=== PATIENT | male | born 1950 | race Caucasian/White ===

== ENCOUNTER 2016-12-26 09:22 | Emergency (ER) | payer OTHER ==
[~2016-12-26] VITALS: Ht 182.9 cm; Wt 106.0 kg
[2016-12-26 09:26] VITALS: BP 129/96; PULSE 70; RESP 16; TEMP 98.6; O2SAT 96
[2016-12-26] MEDS ORDERED: GABA600T PO (09:46)
[2016-12-26] MEDS ORDERED: B2100TAB PO (09:46)
[2016-12-26] MEDS ORDERED: PROZ40CA PO (09:46)
[2016-12-26] MEDS ORDERED: FINA1TAB16 PO (09:46)
[2016-12-26] MEDS ORDERED: PREV15CA15 PO (09:46)
[2016-12-26] MEDS ORDERED: NORT10CA PO (09:46)
[2016-12-26] MEDS ORDERED: ACETAMINOPHEN/HYDROcodone 325 MG/5 MG TAB PO ONE (10:15)
[2016-12-26] MEDS ORDERED: CEPHALEXIN MONOHYDRATE 500 MG CAP PO ONE (10:15)
[2016-12-26] MEDS ORDERED: TETANUS/DIPHTHERIA TOXOID ADULT 0.5 ML VIAL IM ONE (10:15)
[2016-12-26] MEDS ORDERED: ULTR50TA5 PO ×2 (10:16→10:26)
[2016-12-26] MEDS ORDERED: CEPH-460 PO ×2 (10:16→10:26)
--- NOTE | 2016-12-26 10:16 | PD ---
HPI . Left hand pain Chief Complaint: Skin Problem Time Seen by Provider: 10:04 Travel History International Travel<30 days: No Contact w/Intl Traveler<30days: No Traveled to known affect area: No History of Present Illness HPI Patient presents with pain and swelling of the left hand. He states that he initially injured his left lower forearm about a week ago. He scraped it on a toolbox. He then subsequently scraped it on some metal. However, he did not have any problems with it about 2 days ago when it started swelling and becoming painful. The symptoms have progressively increased over the course of last couple days. He denies any associated fevers or chills. He states that the pain is not exacerbated by movement of the fingers. He believes that his last tetanus shot was about 6-7 years ago. [id number]: Left wrist and hand QUALITY: Throbbing DURATION: 2 days TIMING: Progressively worsening CONTEXT: Associated with an antecedent abrasion on the left lower forearm MODIFYING FACTORS: Not exacerbated by finger movement ASSOCIATED SYMPTOMS: No associated fevers or chills PFSH Past Medical History Diminished Hearing: No Migraines: Yes Tetanus Vaccination: > 5 Years Influenza Vaccination: Yes Past Surgical History Other Surgery: Yes (RIGHT HAND SX) Social History Alcohol Use: Yes (RARE) Tobacco Use: No (QUIT 2011) Substance Use: No Allergies-Medications (Allergen,Severity, Reaction): Coded Allergies: No Known Allergies (Unverified , 12/26/16) Reported Meds & Prescriptions Reported Meds & Active Scripts Active Reported Prevacid (Lansoprazole) 15 Mg Capdr 15 Mg PO HS Nortriptyline (Nortriptyline HCl) 10 Mg Cap 10 Mg PO HS Finasteride (Finasteride (Alopecia)) 1 Mg Tab 5 Mg PO DAILY B2 (Riboflavin) 100 Mg Tab 3 Tab PO DAILY Prozac (Fluoxetine HCl) 40 Mg Cap 40 Mg PO DAILY Gabapentin 600 Mg Tab 600 Mg PO TID Review of Systems Except as stated in HPI: all other systems reviewed are Neg General / Constitutional: No: Fever, Chills Musculoskeletal: Positive: Edema (left wrist and hand left wrist and hand), Pain Skin: Positive Change in Pigmentation Physical Exam Narrative GENERAL: Awake and alert and in no acute distress. SKIN: Warm and dry. Some mild erythema and warmth on the dorsal aspect of the left wrist and hand. CARDIOVASCULAR: Regular rate and rhythm. RESPIRATORY: No accessory muscle use. MUSCULOSKELETAL: No obvious deformities. No edema. He is able to flex and extend the fingers without difficulty. NEUROLOGICAL: Awake and alert. No obvious cranial nerve deficits. Motor grossly within normal limits. Normal speech. PSYCHIATRIC: Appropriate mood and affect; insight and judgment normal. Data Data Last Documented VS Vital Signs Date Time Temp Pulse Resp B/P Pulse Ox O2 Delivery O2 Flow Rate FiO2 12/26/16 09:26 98.6 70 16 129/96 96 Orders Tetanus/Diphtheria Tox Adult (Tetanus/Di (12/26/16 10:15) Cephalexin (Keflex) (12/26/16 10:15) Acetamin-Hydrocod 325-5 Mg ([place] 5-325 (12/26/16 10:15) MDM Medical Decision Making Medical Screen Exam Complete: Yes Emergency Medical Condition: Yes Differential Diagnosis My differential diagnosis includes but is not limited to localized wound infection, cellulitis, abscess Narrative Course Patient presents with pain and swelling of the left hand after suffering an abrasion to left forearm. He has cellulitis on exam. No evidence of tenosynovitis. Diagnosis Primary Impression: Cellulitis and abscess of hand Patient Instructions: Cellulitis (DC), General Instructions Med/Other Pt SpecificInfo: Prescription(s) given Scripts Tramadol (Ultram)50 Mg Tab50 Mg PO Q4H PRN (PAIN) #12 TAB Ref 0 Prov:Mirna Andrade MD 12/26/16 Cephalexin (Keflex)500 Mg [id number] Mg PO Q8H #30 CAP Ref 0 Prov:Mirna Andrade MD 12/26/16 Disposition: 01 DISCHARGE HOME Condition: Stable Mirna Andrade MD Dec 26, 2016 10:16
== END 2016-12-26 10:34 | disposition home or self-care (01) ==
LOC: PHED 09:22
DX: L03.114 Cellulitis of left upper limb (principal); L02.512 Cutaneous abscess of left hand; S50.812A Abrasion of left forearm, initial encounter; W26.8XXA Contact with other sharp object(s), not elsewhere classified, initial encounter; Y93.9 Activity, unspecified; Y92.9 Unspecified place or not applicable
CPT/HCPCS: 90471; 90714